=== PATIENT | male | born 1965 | race Caucasian/White ===

== ENCOUNTER 2022-05-27 15:04 | Observation (INO) ==
[2022-05-27 16:38] LABS: MEAN CORPUSCULAR HEMOGLOBIN 28.9 pg (27.0-34.0); MONOCYTES # (AUTO) 0.7 x10^3/uL (0.3-0.8); WHITE BLOOD COUNT 6.1 X10^3/uL (3.6-10.0)
[2022-05-27 16:39] VITALS: BMI 25.1
[2022-05-27 16:46] LABS: HEMOGLOBIN A1C 9.7 %
[2022-05-27 16:48] LABS: BASOPHILS # (AUTO) 0.1 X10^3/uL (0.0-0.1); BASOPHILS % (AUTO) 0.9 % (0.2-1.0); EOSINOPHILS # (AUTO) 0.3 x10^3/uL (0.0-0.2); EOSINOPHILS % (AUTO) 5.5 % (0.9-2.9); HEMATOCRIT 37.5 % (42.0-54.0); HEMOGLOBIN 12.6 g/dL (13.5-18.0); LYMPHOCYTES # (AUTO) 1.3 X10^3/uL (1.3-2.9); LYMPHOCYTES % (AUTO) 21.3 % (21.0-51.0); MEAN CORPUSCULAR HGB CONC 33.5 g/dL (33.0-35.0); MEAN CORPUSCULAR VOLUME 86.4 fL (80.0-100.0); MONOCYTES % (AUTO) 11.2 % (0.0-13.0); NEUTROPHILS # (AUTO) 3.7 x10^3/uL (2.2-4.8); NEUTROPHILS % (AUTO) 61.1 % (42.0-75.0); RED BLOOD COUNT 4.34 X10^6/uL (4.7-6.0); RED CELL DISTRIBUTION WIDTH 14.7 % (11.6-16.5)
[2022-05-27 16:50] LABS: ALANINE AMINOTRANSFERASE 25 Units/L (12-78); ALBUMIN 3.1 g/dL (3.4-5.0); ALKALINE PHOSPHATASE 136 Units/L (46-116); ASPARTATE AMINO TRANSFERASE 21 Units/L (15-37); BLOOD UREA NITROGEN 14 mg/dL (7-18); CALCIUM 9.1 mg/dL (8.5-10.1); CHLORIDE 98 mmol/L (98-107); COR CA(FOR HYPOALB) 9.8 mg/dL (8.5-10.1); COR NA(FOR HYPERGLY) 138 mmol/L (136-145); CREATININE 1.03 mg/dL (0.70-1.30); MAGNESIUM 1.5 mg/dL (2.0-2.9); SODIUM 134 mmol/L (136-145); TOTAL PROTEIN 8.1 g/dL (6.4-8.2); eGFR NON BLACK RACES > 60 (>60)
--- NOTE | 2022-05-27 17:50 | DR.H&P ---
H&P - History & Physical for Day of: H&P Date: 05/27/22 - Chief Complaint Chief Complaint: RIGHT SIDE ABDOMINAL PAIN, WOUND DRAINING, "BAD GALLBLADDER" - History of Present Illness History of Present Illness: PT IS 57 WM, DIRECT ADMIT FROM DR GUTIERREZ OFFICE WITH CO RIGHT SIDE ABDOMINAL PAIN. PT WAS DX WITH CHOLECYSTITIS IN APRIL AND HAD BILARY DRAIN PLACED. PT HAS HAD PURULENT DRAINAGE FROM AROUND CATHETER TUBING. PT HAS PMH OF DIABETES AND HIS BLOOD SUGAR HAS BEEN AROUND 300, NOT CONTROLLED WITH INSULIN. PT ADMITTED FOR TREATMENT AND EVALUATION OF ACUTE ILLNESS. - Past Medical History Past Medical History: Diabetes, Hypertension, Liver Disease - Past Surgical History Surgical History: Abdominal Surgery - Family History Family Medical History: Diabetes Mellitus, Cancer, Hypertension - Social History Does patient currently use any type of tobacco product: No Have you used tobacco products in the last 12 months: No Type of Tobacco Use: None Alcohol Use: None Drug Use: None - Medications Home Medications: No Known Allergies [NKA] Allergy (Verified 05/19/22 23:22) - Review of Systems Constitutional: Weakness, Malaise Eyes: No Symptoms Reported ENT: No Symptoms Reported Respiratory: No Symptoms Reported Cardiovascular: No Symptoms Reported Gastrointestinal: Nausea, Vomiting, Other (FOOD INTOLERANCE) Genitourinary: No Symptoms Reported Musculoskeletal: No Symptoms Reported Skin: Wound Neurological: Weakness - Physical Exam Vital Signs: Temperature 98.2 F Pulse Rate [Left Radial] 92 Respiratory Rate 18 Blood Pressure [Left Arm] 130/68 O2 Sat by Pulse Oximetry 98 Oriented: Normal Eyes: Normal Ear: Normal Nose: Normal Throat: Normal Respiratory: RLL Diminished, LLL Diminished Cardiovascular: Normal : Normal Auscultation: Bowel Sounds: Normal Palpation: Normal Tenderness: Normal Skin: Decreased Turgur Musculoskeletal: Back:Lumbar Psychiatric: Anxiety Affect: Anxious Speech Pattern: Clear, Appropriate - Assessment/Plan (1) Cholecystitis Status: Acute Plan: ADMIT, IV HYDRATION. PAIN CONTROL, SURGICAL CONSULT. WOUND CULTURE, BLOOD CULTURES ON ADMISSION. VERIFY HOME MEDICATION, BP CONTROL. BS CONTROL (2) Hypertension Status: Acute (3) Diabetes Status: Acute (4) Elevated LFTs Status: Acute - Allergies Allergies/Adverse Reactions: Allergies Allergy/AdvReac Type Severity Reaction Status Date / Time No Known Allergies [NKA] Allergy Verified 05/19/22 23:22
[2022-05-27] MEDS: NS 1,000 ML IV 1,000 ML IV SCH (18:03)
[2022-05-27] MEDS: ZOSYN VIAL 3.375 GRAMS 3.375 G in NS 100 ML IV 100 ML IV SCH ×2 (18:03→21:02)
[2022-05-27] MEDS: PROTONIX INJ 40 MG VIAL IVP SCH (18:04)
[2022-05-27] MEDS: ZOFRAN INJ 4 MG VIAL IVP PRN (18:29)
[2022-05-27] MEDS ORDERED: KLOR-CON PO PRN (18:57)
[2022-05-27] MEDS ORDERED: POTASSIUM CHL 60 MEQ/NS 0.45% 500 ML IV PRN (18:57)
[2022-05-27] MEDS ORDERED: POTASSIUM CHLORIDE LIQ 20 MEQ UDC PO PRN (18:57)
[2022-05-27] MEDS ORDERED: POTASSIUM CHL 40 MEQ/NS 0.45% 500 ML IV PRN (18:57)
[2022-05-27] MEDS ORDERED: MICRO K EXTEN CAP 10 MEQ PO PRN (18:57)
[2022-05-27] MEDS ORDERED: K-RIDER 10 MEQ/NS 100 ML 10 MEQ/100 ML BAG IV PRN (18:57)
[2022-05-27] MEDS: SNACK - Diabetic Appropriate PO SCH ×2 (21:00→21:02)
[2022-05-27] MEDS: K-DUR TAB 20 MEQ PO PRN (21:01)
--- NOTE | 2022-05-27 22:05 | CT ---
HISTORYintra abdominal wall infectionSTUDYABDOMEN/PELVIS WITH CONCOMPARISONTECHNIQUEMultiple axial images of the abdomen and pelvis were obtained from the lung bases to the pubic symphysis after the administration of IV contrast. Dose reduction techniques including Automated Exposure Control (AEC) and adjustment of mA and kV were utilized.FINDINGSThere are multiple small nodules in the lung bases measuring up to 6 mm in diameter. Differential includes prior infection and malignancy. There is no pleural effusion. The heart size is normal. There is atherosclerosis in the LAD, circumflex, and RCA. The liver is enlarged. The spleen is enlarged measuring up to 16.2 cm. There is a percutaneous cholecystostomy tube in position and there is gas along the tract and in the gallbladder. There is fluid surrounding the gallbladder and adjacent subdiaphragmatic space. There is some induration around the tube within the body wall but no gas bubbles or fluid collection in the body wall. The pancreas and adrenal glands are normal. The kidneys are normal in size without mass, stone, or hydronephrosis. The stomach and small bowel loops are normal. The appendix is normal. There is stool in the colon but the large bowel is otherwise unremarkable. Urinary bladder is distended. Prostate gland is enlarged measuring 5.7 cm in diameter. There is relatively minor systemic atherosclerosis. There are prominent mesenteric lymph nodes and gunnar hepatis lymph nodes. There is no worrisome bone marrow lesion.IMPRESSION1. Percutaneous cholecystostomy tube appears to be appropriately positioned in the gallbladder. There is gas in the gallbladder and in the subdiaphragmatic space. There is also fluid around the gallbladder and in the subdiaphragmatic space and down to the duodenum. 2. There is inflammation in the body wall but no gas or fluid collection in the body wall. 3. Splenomegaly and probable hepatomegaly. 4. Mesenteric and gunnar hepatis adenopathy, likely reactive.Electronically signed by: Uriel Sung (May 27, 2022 22:04:24)
[2022-05-27 22:43] LABS: BILIRUBIN,URINE NEGATIVE (NEGATIVE); BLOOD/HEMOGLOBIN,URINE NEGATIVE (NEGATIVE); GLUCOSE, URINE NEGATIVE (NEGATIVE); KETONES,URINE NEGATIVE (NEGATIVE); LEUKOCYTE ESTERASE ,URINE NEGATIVE (NEGATIVE); NITRITES,URINE NEGATIVE (NEGATIVE); PROTEIN,URINE NEGATIVE (NEGATIVE); UROBILINOGEN,URINE NORMAL (NORMAL)
[2022-05-27 22:47] LABS: APPEARANCE,URINE CLEAR (CLEAR); COLOR,URINE PALE YELLOW (YELLOW)
[2022-05-28] MEDS: ZOSYN VIAL 3.375 GRAMS 3.375 G in NS 100 ML IV 100 ML IV SCH ×3 (05:44→21:18)
[2022-05-28] MEDS: NS 1,000 ML IV 1,000 ML IV SCH ×2 (05:50→20:51)
[2022-05-28 06:47] LABS: CHOL/HDL RATIO 2.6 (0.0-5.0)
[2022-05-28 08:21] LABS: BASOPHILS # (AUTO) 0.1 X10^3/uL (0.0-0.1); BASOPHILS % (AUTO) 1.3 % (0.2-1.0); EOSINOPHILS # (AUTO) 0.4 x10^3/uL (0.0-0.2); EOSINOPHILS % (AUTO) 6.8 % (0.9-2.9); HEMATOCRIT 35.4 % (42.0-54.0); HEMOGLOBIN 11.7 g/dL (13.5-18.0); LYMPHOCYTES # (AUTO) 1.3 X10^3/uL (1.3-2.9); LYMPHOCYTES % (AUTO) 23.8 % (21.0-51.0); MEAN CORPUSCULAR HEMOGLOBIN 28.5 pg (27.0-34.0); MEAN CORPUSCULAR HGB CONC 32.9 g/dL (33.0-35.0); MEAN CORPUSCULAR VOLUME 86.5 fL (80.0-100.0); MEAN PLATELET VOLUME 9.1 fL (7.4-11.0); MONOCYTES # (AUTO) 0.7 x10^3/uL (0.3-0.8); MONOCYTES % (AUTO) 12.1 % (0.0-13.0); RED BLOOD COUNT 4.09 X10^6/uL (4.7-6.0); WHITE BLOOD COUNT 5.4 X10^3/uL (3.6-10.0)
[2022-05-28 08:29] LABS: ALANINE AMINOTRANSFERASE 24 Units/L (12-78); ALBUMIN 2.6 g/dL (3.4-5.0); ALKALINE PHOSPHATASE 118 Units/L (46-116); ASPARTATE AMINO TRANSFERASE 21 Units/L (15-37); BLOOD UREA NITROGEN 10 mg/dL (7-18); CALCIUM 8.9 mg/dL (8.5-10.1); CARBON DIOXIDE 28.2 mmol/L (21-32); CHLORIDE 103 mmol/L (98-107); COR NA(FOR HYPERGLY) 140 mmol/L (136-145); CREATININE 0.97 mg/dL (0.70-1.30); SODIUM 138 mmol/L (136-145); TOTAL PROTEIN 7.2 g/dL (6.4-8.2); eGFR NON BLACK RACES > 60 (>60)
[2022-05-28] MEDS: ZESTRIL TAB 5 MG PO SCH (09:28)
[2022-05-28] MEDS: PROTONIX INJ 40 MG VIAL IVP SCH (09:28)
[2022-05-28] MEDS: MAGNESIUM SULFATE 1 GRAM/100 mL PREMIX 1 G/100 ML BAG IV PRN ×2 (09:29→11:05)
--- NOTE | 2022-05-28 09:32 | RAD ---
HISTORYPreop gallbladder surgerySTUDYChest AP portableCOMPARISONNoneFINDINGSHeart size is normal. Alpa are normal. Lung marte are clear. No pleural effusions are identified. Bony thorax is unremarkable.IMPRESSIONNo significant abnormality identifiedElectronically signed by: SARAI GUPTA (May 28, 2022 09:31:39)
[2022-05-28] MEDS: NovoLIN R (or HumuLIN R) SUBCUT PRN ×6 (12:58→21:26)
[2022-05-28] MEDS: NORCO 5/325 MG TAB PO PRN (18:14)
[2022-05-28] MEDS: SNACK - Diabetic Appropriate PO SCH (20:50)
[2022-05-29] MEDS: NS 1,000 ML IV 1,000 ML IV SCH ×3 (00:43→22:30)
[2022-05-29] MEDS: NORCO 5/325 MG TAB PO PRN (00:44)
[2022-05-29] MEDS: ZOSYN VIAL 3.375 GRAMS 3.375 G in NS 100 ML IV 100 ML IV SCH ×3 (05:19→21:02)
[2022-05-29 06:39] LABS: BASOPHILS # (AUTO) 0.1 X10^3/uL (0.0-0.1); BASOPHILS % (AUTO) 1.2 % (0.2-1.0); EOSINOPHILS # (AUTO) 0.4 x10^3/uL (0.0-0.2); HEMATOCRIT 33.9 % (42.0-54.0); HEMOGLOBIN 11.3 g/dL (13.5-18.0); LYMPHOCYTES # (AUTO) 1.3 X10^3/uL (1.3-2.9); LYMPHOCYTES % (AUTO) 27.4 % (21.0-51.0); MEAN CORPUSCULAR HEMOGLOBIN 28.9 pg (27.0-34.0); MEAN CORPUSCULAR HGB CONC 33.4 g/dL (33.0-35.0); MEAN CORPUSCULAR VOLUME 86.5 fL (80.0-100.0); MEAN PLATELET VOLUME 8.8 fL (7.4-11.0); MONOCYTES # (AUTO) 0.6 x10^3/uL (0.3-0.8); MONOCYTES % (AUTO) 12.5 % (0.0-13.0); NEUTROPHILS # (AUTO) 2.5 x10^3/uL (2.2-4.8); NEUTROPHILS % (AUTO) 50.9 % (42.0-75.0); RED BLOOD COUNT 3.92 X10^6/uL (4.7-6.0); RED CELL DISTRIBUTION WIDTH 14.5 % (11.6-16.5); WHITE BLOOD COUNT 4.9 X10^3/uL (3.6-10.0)
[2022-05-29 06:49] LABS: ALANINE AMINOTRANSFERASE 18 Units/L (12-78); ALBUMIN 2.5 g/dL (3.4-5.0); ALKALINE PHOSPHATASE 109 Units/L (46-116); ASPARTATE AMINO TRANSFERASE 17 Units/L (15-37); BLOOD UREA NITROGEN 10 mg/dL (7-18); CALCIUM 8.7 mg/dL (8.5-10.1); CHLORIDE 105 mmol/L (98-107); COR CA(FOR HYPOALB) 9.9 mg/dL (8.5-10.1); COR NA(FOR HYPERGLY) 141 mmol/L (136-145); CREATININE 0.92 mg/dL (0.70-1.30); MAGNESIUM 1.6 mg/dL (2.0-2.9); SODIUM 139 mmol/L (136-145); TOTAL PROTEIN 6.8 g/dL (6.4-8.2); eGFR NON BLACK RACES > 60 (>60)
[2022-05-29] MEDS ORDERED: VERSED ONE (09:28)
[2022-05-29] MEDS ORDERED: DILAUDID INJ ONE (09:28)
[2022-05-29] MEDS: PROTONIX INJ 40 MG VIAL IVP SCH (09:34)
[2022-05-29] MEDS ORDERED: VERSED IVP ONE (09:50)
[2022-05-29] MEDS: ZESTRIL TAB 5 MG PO SCH (09:50)
[2022-05-29] MEDS ORDERED: DILAUDID INJ IVP ONE (09:52)
[2022-05-29] MEDS: MAGNESIUM SULFATE 1 GRAM/100 mL PREMIX 1 G/100 ML BAG IV PRN ×2 (10:30→12:30)
[2022-05-29] MEDS: NovoLIN R (or HumuLIN R) SUBCUT PRN ×3 (10:57→21:02)
--- NOTE | 2022-05-29 11:38 | DR.PROGNOT ---
HOSPITAL PROGRESS NOTE Progress Note for Day of: Progress Note Date: 05/29/22 Chief Complaint Chief Complaint: no changes .. no drainage in drainage bag and mild amount on the dressing . Pigtail drain was removed at bed side and colostomy bag was applied around the drain site . Past Medical Family Social History Allergies: Allergies No Known Allergies [NKA] Allergy (Verified 05/19/22 23:22) Review Of Systems Changes in ROS: no changes . Vital Signs Vital Signs: Temperature 98.0 F Pulse Rate [Left Radial] 73 Respiratory Rate 18 Blood Pressure [Right Arm] 122/72 Blood Pressure [Left Arm] 98/57 O2 Sat by Pulse Oximetry 95 Physical Exam Oriented: Normal Eyes: Normal Ear: Normal Nose: Normal Throat: Normal Cardiovascular: Normal : Normal GI:Auscultation: Normal GI:Palpation: Normal GI: Tenderness: Normal Skin: Decreased Turgur Musculoskeletal: Back:Lumbar Psychiatric: Anxiety Affect: Anxious Speech Pattern: Clear and Appropriate Laboratory and Diagnostics Result Diagrams: 05/29/22 05:23 05/29/22 05:23 Labs: 05/27/22 19:54 Abdomen Wound Gram Stain - Final 05/27/22 19:54 Abdomen Wound Culture - Preliminary Laboratory WBC 4.9 X10^3/uL (3.6-10.0) 05/29/22 05: RBC 3.92 X10^6/uL (4.7-6.0) L 05/29/22 05: Hgb 11.3 g/dL (13.5-18.0) L 05/29/22 05:23 Hct 33.9 % (42.0-54.0) L 05/29/22 05: MCV 86.5 fL (80.0-100.0) 05/29/22 05:23 MCH 28.9 pg (27.0-34.0) 05/29/22 05: MCHC 33.4 g/dL (33.0-35.0) 05/29/22 05: RDW 14.5 % (11.6-16.5) 05/29/22 05: Plt Count 108 X10^3/uL (150.0-450.0) L 05/29/22 05: MPV 8.8 fL (7.4-11.0) 05/29/22 05:23 Neut % (Auto) 50.9 % (42.0-75.0) 05/29/22 05:23 Lymph % (Auto) 27.4 % (21.0-51.0) 05/29/22 05:23 [place] % (Auto) 12.5 % (0.0-13.0) 05/29/22 05:23 Eos % (Auto) 8.0 % (0.9-2.9) H 05/29/22 05:23 Baso % (Auto) 1.2 % (0.2-1.0) H 05/29/22 05:23 Neut # (Auto) 2.5 x10^3/uL (2.2-4.8) 05/29/22 05:23 Lymph # (Auto) 1.3 X10^3/uL (1.3-2.9) 05/29/22 05:23 [place] # (Auto) 0.6 x10^3/uL (0.3-0.8) 05/29/22 05:23 Eos # (Auto) 0.4 x10^3/uL (0.0-0.2) H 05/29/22 05:23 Baso # (Auto) 0.1 X10^3/uL (0.0-0.1) 05/29/22 05:23 Absolute Nucleated RBC 0.2 /100WBC 05/29/22 05:23 Sodium 139 mmol/L (136-145) 05/29/22 05:23 Corrected Sodium 141 mmol/L (136-145) 05/29/22 05:23 Potassium 3.7 mmol/L (3.5-5.1) 05/29/22 05:23 Chloride 105 mmol/L (98-107) 05/29/22 05:23 Carbon Dioxide 29.0 mmol/L (21-32) 05/29/22 05:23 BUN 10 mg/dL (7-18) 05/29/22 05:23 Creatinine 0.92 mg/dL (0.70-1.30) 05/29/22 05:23 Est GFR (MDRD) Af Amer > 60 (>60) 05/29/22 05:23 Est GFR (MDRD) Non-Af > 60 (>60) 05/29/22 05:23 Glucose 178 mg/dL (65-99) H 05/29/22 05:23 POC Glucose (mg/dL) 248 mg/dL (65-99) H 05/29/22 10:50 Hemoglobin A1c 9.7 % 05/27/22 16:13 Calcium 8.7 mg/dL (8.5-10.1) 05/29/22 05:23 Corrected Calcium 9.9 mg/dL (8.5-10.1) 05/29/22 05:23 Magnesium 1.6 mg/dL (2.0-2.9) L 05/29/22 05:23 Total Bilirubin 0.40 mg/dL (0.2-1.0) 05/29/22 05:23 AST 17 Units/L (15-37) 05/29/22 05:23 ALT 18 Units/L (12-78) 05/29/22 05:23 Alkaline Phosphatase 109 Units/L (46-116) 05/29/22 05:23 Total Protein 6.8 g/dL (6.4-8.2) 05/29/22 05:23 Albumin 2.5 g/dL (3.4-5.0) L 05/29/22 05:23 Globulin 4.3 g/dL (2.5-4.5) 05/29/22 05:23 Albumin/Globulin Ratio 0.6 Ratio (1.1-2.1) L 05/29/22 05:23 Triglycerides 82 mg/dL (0-150) 05/28/22 05:36 Cholesterol 69 mg/dL (0-200) 05/28/22 05:36 LDL Cholesterol, Calc 26 mg/dL (0-100) 05/28/22 05:36 HDL Cholesterol 27 mg/dL (40-60) L 05/28/22 05:36 Cholesterol/HDL Ratio 2.6 (0.0-5.0) 05/28/22 05:36 Specimen Type Clean catch urine 05/27/22 22:32 Urine Color Pale yellow (YELLOW) 05/27/22 22:32 Urine Appearance Clear (CLEAR) 05/27/22 22:32 Urine pH 7.0 (5.0 - 8.0) 05/27/22 22:32 Ur Specific [place] 1.010 (1.000-1.030) 05/27/22 22:32 Urine Protein Negative (NEGATIVE) 01/23/23 22:32 Urine Glucose (UA) Negative (NEGATIVE) 05/27/22 22:32 Urine Ketones Negative (NEGATIVE) 05/27/22 22:32 Urine Blood Negative (NEGATIVE) 05/27/22 22:32 Urine Nitrite Negative (NEGATIVE) 05/27/22 22:32 Urine Bilirubin Negative (NEGATIVE) 05/27/22 22:32 Urine Urobilinogen Normal (NORMAL) 05/27/22 22:32 Ur Leukocyte Esterase Negative (NEGATIVE) 05/27/22 22:32 Assessment and Plan 1: s/p lap ida and placement of Pigtail drain ( was removed ) . to advance diet , same IV ABT . Pt could be D/C in am and will follow as OP . Problem Patient Problems: Patient Problems (Updated 05/27/22 @ 18:02 by NADER MOON) Elevated LFTs (Acute) R79.89 Cholecystitis (Acute) K81.9 Hypertension (Acute) I10 Diabetes (Acute) E11.9
[2022-05-29] MEDS: ZOFRAN INJ 4 MG VIAL IVP PRN (13:24)
--- NOTE | 2022-05-29 18:29 | PCM.PROG ---
Progress Note - Progress Note for Day of Date of Exam: 05/29/22 - Subjective Subjective: The patient is a 57-year-old white male who was a direct admit from our office yesterday. He has a history of diabetes mellitus. He also has a history of cholecystitis and had to have a biliary drain catheter placed which has been in place almost a month. The patient has had copious amounts of purulent drainage from around where the catheter was placed with minimal fluid in the collection container. He does have I would say just a scant amount of green bile like liquid. He has not been able to take any of his oral diabetic medications. He has been on sliding scale and has had a difficult time controlling his blood sugar. We have started him on sliding scale insulin since hes been here. I would like to get him started on a basal insulin as well. His hemoglobin A1C is 9.7. We have consulted Dr. Elise about his cholecystitis and his biliary drainage catheter for assessment. He has ordered records from the patients prior care givers hopefully to plan to remove the drainage cath eter. Cultures were obtained on admission and are pending, both blood and wound cultures. He is currently on Zosyn. - Past Medical Family Social History Past Med/Fam/Surg Hx: No changes since H&P Allergies: Allergies No Known Allergies [NKA] Allergy (Verified 05/19/22 23:22) - Review of Systems ROS: No change since H&P - Vital Signs and I&O's Vital Signs: Temperature 99.4 F Pulse Rate [Left Radial] 81 Respiratory Rate 18 Blood Pressure [Right Arm] 116/64 Blood Pressure [Left Arm] 98/57 O2 Sat by Pulse Oximetry 95 Intake and Output: Intake & Output 05/27/22 05/28/22 05/29/22 05/30/22 11:59 11:59 11:59 11:59 Intake Total 1100 / 1100 3400 / 3400 1240 / 1240 Output Total 1370 / 1370 1300 / 1300 200 / 200 Balance -270 / -270 2100 / 2100 1040 / 1040 - Physical Exam Oriented: Normal Eyes: Normal Ear: Normal Nose: Normal Throat: Normal Respiratory: Normal Cardiovascular: Normal : Normal Auscultation: Bowel Sounds: Normal Tenderness: RUQ Skin: Decreased Turgur, Wound Musculoskeletal: Back:Lumbar Psychiatric: Anxiety Affect: Anxious Speech Pattern: Clear, Appropriate - Laboratory and Diagnostics Result Diagrams: 05/29/22 05:23 05/29/22 05:23 Labs: 05/27/22 19:54 Abdomen Wound Gram Stain - Final 05/27/22 19:54 Abdomen Wound Culture - Preliminary Laboratory WBC 4.9 X10^3/uL (3.6-10.0) 05/29/22 05:23 RBC 3.92 X10^6/uL (4.7-6.0) L 05/29/22 05:23 Hgb 11.3 g/dL (13.5-18.0) L 05/29/22 05:23 Hct 33.9 % (42.0-54.0) L 05/29/22 05:23 MCV 86.5 fL (80.0-100.0) 05/29/22 05:23 MCH 28.9 pg (27.0-34.0) 05/29/22 05: MCHC 33.4 g/dL (33.0-35.0) 05/29/22 05: RDW 14.5 % (11.6-16.5) 05/29/22 05:23 Plt Count 108 X10^3/uL (150.0-450.0) L 05/29/22 05:23 MPV 8.8 fL (7.4-11.0) 05/29/22 05:23 Neut % (Auto) 50.9 % (42.0-75.0) 05/29/22 05:23 Lymph % (Auto) 27.4 % (21.0-51.0) 05/29/22 05:23 [place] % (Auto) 12.5 % (0.0-13.0) 05/29/22 05:23 Eos % (Auto) 8.0 % (0.9-2.9) H 05/29/22 05: Baso % (Auto) 1.2 % (0.2-1.0) H 05/29/22 05:23 Neut # (Auto) 2.5 x10^3/uL (2.2-4.8) 05/29/22 05:23 Lymph # (Auto) 1.3 X10^3/uL (1.3-2.9) 05/29/22 05:23 [place] # (Auto) 0.6 x10^3/uL (0.3-0.8) 05/29/22 05:23 Eos # (Auto) 0.4 x10^3/uL (0.0-0.2) H 05/29/22 05:23 Baso # (Auto) 0.1 X10^3/uL (0.0-0.1) 05/29/22 05:23 Absolute Nucleated RBC 0.2 /100WBC 05/29/22 05:23 Sodium 139 mmol/L (136-145) 05/29/22 05:23 Corrected Sodium 141 mmol/L (136-145) 05/29/22 05:23 Potassium 3.7 mmol/L (3.5-5.1) 05/29/22 05:23 Chloride 105 mmol/L (98-107) 05/29/22 05:23 Carbon Dioxide 29.0 mmol/L (21-32) 05/29/22 05:23 BUN 10 mg/dL (7-18) 05/29/22 05:23 Creatinine 0.92 mg/dL (0.70-1.30) 05/29/22 05:23 Est GFR (MDRD) Af Amer > 60 (>60) 05/29/22 05:23 Est GFR (MDRD) Non-Af > 60 (>60) 05/29/22 05:23 Glucose 178 mg/dL (65-99) H 05/29/22 05:23 POC Glucose (mg/dL) 278 mg/dL (65-99) H 05/29/22 16:12 Hemoglobin A1c 9.7 % 05/27/22 16:13 Calcium 8.7 mg/dL (8.5-10.1) 05/29/22 05:23 Corrected Calcium 9.9 mg/dL (8.5-10.1) 05/29/22 05:23 Magnesium 1.6 mg/dL (2.0-2.9) L 05/29/22 05:23 Total Bilirubin 0.40 mg/dL (0.2-1.0) 05/29/22 05:23 AST 17 Units/L (15-37) 05/29/22 05:23 ALT 18 Units/L (12-78) 05/29/22 05:23 Alkaline Phosphatase 109 Units/L (46-116) 05/29/22 05:23 Total Protein 6.8 g/dL (6.4-8.2) 05/29/22 05:23 Albumin 2.5 g/dL (3.4-5.0) L 05/29/22 05:23 Globulin 4.3 g/dL (2.5-4.5) 05/29/22 05:23 Albumin/Globulin Ratio 0.6 Ratio (1.1-2.1) L 05/29/22 05:23 Triglycerides 82 mg/dL (0-150) 05/28/22 05:36 Cholesterol 69 mg/dL (0-200) 05/28/22 05:36 LDL Cholesterol, Calc 26 mg/dL (0-100) 05/28/22 05:36 HDL Cholesterol 27 mg/dL (40-60) L 05/28/22 05:36 Cholesterol/HDL Ratio 2.6 (0.0-5.0) 05/28/22 05:36 Specimen Type Clean catch urine 05/27/22 22:32 Urine Color Pale yellow (YELLOW) 05/27/22 22:32 Urine Appearance Clear (CLEAR) 05/27/22 22:32 Urine pH 7.0 (5.0 - 8.0) 05/27/22 22:32 Ur Specific [place] 1.010 (1.000-1.030) 05/27/22 22:32 Urine Protein Negative (NEGATIVE) 05/27/22 22:32 Urine Glucose (UA) Negative (NEGATIVE) 05/27/22 22:32 Urine Ketones Negative (NEGATIVE) 05/27/22 22:32 Urine Blood Negative (NEGATIVE) 05/27/22 22:32 Urine Nitrite Negative (NEGATIVE) 05/27/22 22:32 Urine Bilirubin Negative (NEGATIVE) 05/27/22 22:32 Urine Urobilinogen Normal (NORMAL) 05/27/22 22:32 Ur Leukocyte Esterase Negative (NEGATIVE) 05/27/22 22:32 - Plan (1) Cholecystitis Status: Acute Plan: IV HYDRATION. PAIN CONTROL, SURGICAL CONSULT. WOUND CULTURE, BLOOD CULTURES ON ADMISSION. VERIFY HOME MEDICATION, BP CONTROL. BS CONTROL (2) Hypertension Status: Acute (3) Diabetes Status: Acute (4) Elevated LFTs Status: Acute
[2022-05-29] MEDS ORDERED: SNACK - Diabetic Appropriate PO SCH (20:00)
[2022-05-29] MEDS: SNACK - Diabetic Appropriate PO SCH (20:50)
[2022-05-29] MEDS ORDERED: LEVEMIR SC SCH (21:00)
[2022-05-29] MEDS ORDERED: NovoLIN R (or HumuLIN R) SUBCUT PRN (21:04)
[2022-05-30] MEDS: NS 1,000 ML IV 1,000 ML IV SCH
[2022-05-30] MEDS: ZOSYN VIAL 3.375 GRAMS 3.375 G in NS 100 ML IV 100 ML IV SCH (05:10)
[2022-05-30 05:49] LABS: BASOPHILS # (AUTO) 0.1 X10^3/uL (0.0-0.1); EOSINOPHILS # (AUTO) 0.4 x10^3/uL (0.0-0.2); EOSINOPHILS % (AUTO) 7.8 % (0.9-2.9); HEMATOCRIT 34.5 % (42.0-54.0); HEMOGLOBIN 11.3 g/dL (13.5-18.0); LYMPHOCYTES # (AUTO) 1.3 X10^3/uL (1.3-2.9); MEAN CORPUSCULAR HEMOGLOBIN 28.3 pg (27.0-34.0); MEAN CORPUSCULAR HGB CONC 32.9 g/dL (33.0-35.0); MEAN PLATELET VOLUME 8.8 fL (7.4-11.0); MONOCYTES # (AUTO) 0.7 x10^3/uL (0.3-0.8); NEUTROPHILS # (AUTO) 3.3 x10^3/uL (2.2-4.8); NEUTROPHILS % (AUTO) 57.2 % (42.0-75.0); RED BLOOD COUNT 4.01 X10^6/uL (4.7-6.0); RED CELL DISTRIBUTION WIDTH 15.1 % (11.6-16.5); WHITE BLOOD COUNT 5.7 X10^3/uL (3.6-10.0)
[2022-05-30 06:06] LABS: ALANINE AMINOTRANSFERASE 19 Units/L (12-78); ALBUMIN 2.5 g/dL (3.4-5.0); ALKALINE PHOSPHATASE 105 Units/L (46-116); ASPARTATE AMINO TRANSFERASE 17 Units/L (15-37); BLOOD UREA NITROGEN 10 mg/dL (7-18); CALCIUM 8.4 mg/dL (8.5-10.1); CARBON DIOXIDE 27.5 mmol/L (21-32); CHLORIDE 104 mmol/L (98-107); COR CA(FOR HYPOALB) 9.6 mg/dL (8.5-10.1); COR NA(FOR HYPERGLY) 138 mmol/L (136-145); CREATININE 0.86 mg/dL (0.70-1.30); MAGNESIUM 1.3 mg/dL (2.0-2.9); SODIUM 137 mmol/L (136-145); TOTAL PROTEIN 6.8 g/dL (6.4-8.2); eGFR NON BLACK RACES > 60 (>60)
[2022-05-30] MEDS: PROTONIX INJ 40 MG VIAL IVP SCH (08:22)
[2022-05-30] MEDS: ZESTRIL TAB 5 MG PO SCH (08:22)
[2022-05-30] MEDS: K-DUR TAB 20 MEQ PO PRN (08:22)
[2022-05-30 11:28] VITALS: BP 108/53
== END 2022-05-30 14:41 | disposition home or self-care (01) ==
LOC: MED/SURG
PROVIDERS: ADMIT Internal Medicine; ATTEND Internal Medicine
DX: Z98.890 Other specified postprocedural states; E83.42 Hypomagnesemia; B96.89 Other specified bacterial agents as the cause of diseases classified elsewhere; E11.65 Type 2 diabetes mellitus with hyperglycemia; B95.2 Enterococcus as the cause of diseases classified elsewhere; Z79.899 Other long term (current) drug therapy; I10 Essential (primary) hypertension; K81.0 Acute cholecystitis; K74.60 Unspecified cirrhosis of liver; B96.5 Pseudomonas (aeruginosa) (mallei) (pseudomallei) as the cause of diseases classified elsewhere; R94.5 Abnormal results of liver function studies